=== PATIENT | female | born 1950 | race Caucasian/White ===

== ENCOUNTER 2017-07-13 10:22 | Inpatient (IN) ==
[2017-07-13] MEDS ORDERED: ONDANSETRON 4 MG/2 ML VIAL IV STA (10:53)
[2017-07-13] MEDS ORDERED: PANTOPRAZOLE 40 MG VIAL IV STA (10:53)
[2017-07-13] MEDS ORDERED: SODIUM CHLORIDE 0.9% 1,000 ML IV STA (10:53)
[2017-07-13] MEDS ORDERED: ONDANSETRON 4 MG/2 ML VIAL ONE (11:38)
[2017-07-13] MEDS ORDERED: PANTOPRAZOLE 40 MG VIAL IV ONE (11:38)
[2017-07-13 11:49] LABS: Basophils % 0.5 % (0.0-0.8); Eosinophils # 0.7 10*3/uL (0.0-0.87); Eosinophils % 16.3 % (0.00-10.9); Hematocrit 30.9 VOL% (35.7-47.0); Hemoglobin 10.7 GM/DL (12.0-16.0); Immature Granulocytes % 0.2 %; Immature Granulocytes Absolute 0.01 #; Lymphocytes # 1.9 10*3/uL (1.4-4.0); Lymphocytes % 43.1 % (21.3-54.2); Mean Corpuscular HGB Conc 34.6 GM/DL (32-36); Mean Corpuscular Hemoglobin 33 PG (27-34); Mean Corpuscular Volume 96.6 FL (87-102); Mean Platelet Volume 10.8 FL (9.6-12.0); Monocytes # 0.2 10*3/uL (0.11-0.8); Monocytes % 4.2 % (1.7-12.7); NRBC # 0.22 10*3/uL; Neutrophils # 1.5 10*3/uL (1.4-7.4); Neutrophils % 35.7 % (38.7-73.9); Platelet Count 270 T/CUMM (130-400); Red Cell Distribution Width 17.3 % (9.3-17.3); White Blood Count 4.3 T/CUMM (4-12)
[2017-07-13 12:13] LABS: Band Neutrophils 3 % (0-10); Eosinophils 16 % (0-10); Giant Platelets Few; Hypochromasia 1+; Lymphocytes 46 % (20-55); Nucleated Red Blood Cells 10 (0-5); Ovalocytes Slight; Platelet Estimate Adequate; Segmented Neutrophils 32 % (50-85); Total Cells Counted 100
[2017-07-13 12:16] LABS: Lactic Acid 1.4 MMOL/L (0.4-2.0)
[2017-07-13 12:25] LABS: Alanine Aminotransferase 17 U/L (13-56); Alkaline Phosphatase 68 U/L (45-117); Amylase 28 U/L (25-115); Aspartate Amino Transferase 34 U/L (0-37); Blood Urea Nitrogen 12 MG/DL (7-18); Calcium 8.2 MG/DL (8.5-10.1); Glucose 149 MG/DL (74-106); Osmolality,Calculated 288.8 MOS/KG (273-304); Potassium 3.1 MMOL/L (3.5-5.1); Sodium 144 MMOL/L (136-145); Total Protein 4.9 G/DL (6.4-8.3); Troponin I Only < 0.015 NG/ML (0.00-0.045)
[2017-07-13] MEDS ORDERED: POTASSIUM CHLORIDE 20 MEQ TABLET PO STA (13:41)
[2017-07-13 13:45] LABS: Apearance,Urine Slightly Hazy (Clear); Bacteria,Urine Occasional /HPF (Few); Bilirubin,Urine Negative (Negative); Blood, Urine Negative (Negative); Glucose,Urine (UA) 150 mg/dL (Negative); Ketones,Urine Negative (Negative); Mucus,Urine Occasional /LPF (Occasional); Nitrite,Urine Negative (Negative); Protein,Urine >=500 MG/DL; RBC,Urine 1 /HPF (0-4); Squamous Epithelial Cell,Urine Occasional /HPF (0-10); Urine Color Yellow (Yellow); Urine Specific Gravity 1.026 (1.001-1.035); Urine Urobilinogen < 2.0 EU/DL (0.2-1.0); WBC,Urine 3 /HPF (0-6)
[2017-07-13] MEDS ORDERED: POTASSIUM CHLORIDE 20 MEQ TABLET PO ONE (15:12)
[2017-07-13] MEDS ORDERED: TEMAZEPAM 7.5 MG CAPSULE PO PRN (15:34)
[2017-07-13] MEDS ORDERED: guaiFENesin 200 MG/10 ML UDCUP PO PRN (15:34)
[2017-07-13] MEDS ORDERED: ACETAMINOPHEN 325 MG TABLET PO PRN (15:34)
[2017-07-13] MEDS ORDERED: BENZTROPINE 2 MG/2 ML AMP IV PRN (15:34)
[2017-07-13] MEDS ORDERED: MYLANTA/LIDO VISC 2:1 300 ML BOTTLE SWISH/SWAL PRN (15:34)
[2017-07-13] MEDS ORDERED: ONDANSETRON 4 MG/2 ML VIAL IV PRN (15:34)
[2017-07-13] MEDS ORDERED: LOPERAMIDE 2 MG CAPSULE PO PRN ×2 (15:34)
[2017-07-13] MEDS ORDERED: PROMETHAZINE INJ 25 MG in SODIUM CHLORIDE 0.9% 50 ML IV PRN (15:34)
[2017-07-13] MEDS ORDERED: traMADol 50 MG TABLET PO PRN (15:34)
[2017-07-13] MEDS ORDERED: ALUMINUM/MAGNES/SIMETH MAX STR 30 ML UDCUP PO PRN (15:34)
[2017-07-13] MEDS ORDERED: MAGNESIUM HYDROXIDE SUSP 30 ML UDCUP PO PRN (15:34)
[2017-07-13] MEDS ORDERED: diphenhydrAMINE CAP 25 MG CAPSULE PO PRN (15:34)
[2017-07-13] MEDS ORDERED: ALPRAZolam 0.25 MG TABLET PO PRN (15:34)
[2017-07-13] MEDS ORDERED: MYLANTA/LIDO VISC 2:1 300 ML BOTTLE SWISH/SPIT PRN (15:34)
[2017-07-13] MEDS ORDERED: LACTULOSE 20 GM/30 ML UDCUP PO PRN (15:34)
[2017-07-13 15:53] LABS: Basophils % 0.8 % (0.0-0.8); Eosinophils # 0.8 10*3/uL (0.0-0.87); Eosinophils % 15.6 % (0.00-10.9); Hematocrit 30.7 VOL% (35.7-47.0); Hemoglobin 10.2 GM/DL (12.0-16.0); Immature Granulocytes % 0.2 %; Immature Granulocytes Absolute 0.01 #; Lymphocytes # 2.2 10*3/uL (1.4-4.0); Lymphocytes % 45.3 % (21.3-54.2); Mean Corpuscular HGB Conc 33.2 GM/DL (32-36); Mean Corpuscular Hemoglobin 33 PG (27-34); Mean Corpuscular Volume 98.4 FL (87-102); Mean Platelet Volume 10.4 FL (9.6-12.0); Monocytes # 0.2 10*3/uL (0.11-0.8); Monocytes % 4.4 % (1.7-12.7); NRBC # 0.22 10*3/uL; Neutrophils # 1.6 10*3/uL (1.4-7.4); Neutrophils % 33.7 % (38.7-73.9); Platelet Count 251 T/CUMM (130-400); Red Blood Count 3.12 MC/CUMM (3.8-5.5); Red Cell Distribution Width 17.2 % (9.3-17.3); White Blood Count 4.8 T/CUMM (4-12)
[2017-07-13 16:28] LABS: Uric Acid 4.8 MG/DL (2.6-6.0)
[2017-07-13 16:29] LABS: Albumin 1.9 G/DL (3.4-5.0); Bilirubin,Total 0.5 MG/DL (0.2-1.0); Calcium 7.9 MG/DL (8.5-10.1); Potassium 3.1 MMOL/L (3.5-5.1); Total Protein 4.6 G/DL (6.4-8.3)
[2017-07-13] MEDS: SODIUM CHLORIDE 0.9% 1,000 ML IV SCH (18:03)
[2017-07-13 19:19] LABS: Band Neutrophils 2 % (0-10); Eosinophils 18 % (0-10); Lymphocytes 34 % (20-55); Nucleated Red Blood Cells 2 (0-5); Platelet Estimate Normal; Segmented Neutrophils 43 % (50-85); Total Cells Counted 100
[2017-07-13] MEDS ORDERED: DILTIAZEM CD 240 MG CAPSULE PO ONE (20:36)
[2017-07-13] MEDS: CARVEDILOL 12.5 MG TABLET PO SCH (21:02)
[2017-07-13] MEDS: cloNIDine 0.1 MG TABLET PO PRN (21:03)
[2017-07-13] MEDS: metFORMIN 500 MG TABLET PO SCH (21:03)
[2017-07-13] MEDS: PRAVASTATIN 20 MG TABLET PO SCH (21:03)
[2017-07-14 05:29] LABS: Basophils % 0.4 % (0.0-0.8); Eosinophils # 0.8 10*3/uL (0.0-0.87); Eosinophils % 15.9 % (0.00-10.9); Hematocrit 24.8 VOL% (35.7-47.0); Hemoglobin 8.3 GM/DL (12.0-16.0); Lymphocytes # 2.5 10*3/uL (1.4-4.0); Lymphocytes % 52.1 % (21.3-54.2); Mean Corpuscular HGB Conc 33.5 GM/DL (32-36); Mean Corpuscular Hemoglobin 33 PG (27-34); Mean Corpuscular Volume 98.4 FL (87-102); Mean Platelet Volume 11.1 FL (9.6-12.0); Monocytes # 0.3 10*3/uL (0.11-0.8); Monocytes % 5.3 % (1.7-12.7); NRBC # 0.32 10*3/uL; Neutrophils # 1.2 10*3/uL (1.4-7.4); Neutrophils % 26.3 % (38.7-73.9); Platelet Count 228 T/CUMM (130-400); Red Blood Count 2.52 MC/CUMM (3.8-5.5); Red Cell Distribution Width 17.3 % (9.3-17.3); White Blood Count 4.7 T/CUMM (4-12)
[2017-07-14 07:01] LABS: Band Neutrophils 1 % (0-10); Eosinophils 4 % (0-10); Howell-Jolly Bodies Few; Lymphocytes 48 % (20-55); Nucleated Red Blood Cells 10 (0-5); Segmented Neutrophils 43 % (50-85); Total Cells Counted 100
[2017-07-14 07:02] LABS: Hypochromasia 1+; Platelet Estimate Adequate
[2017-07-14] MEDS: SODIUM CHLORIDE 0.9% 1,000 ML IV SCH (09:01)
[2017-07-14] MEDS: PANTOPRAZOLE 40 MG VIAL IV SCH (09:03)
[2017-07-14] MEDS: MULTIVITAMIN (CENTRUM) TABLET PO SCH (10:22)
[2017-07-14] MEDS: DILTIAZEM CD 240 MG CAPSULE PO SCH (10:22)
[2017-07-14] MEDS: ASPIRIN EC 81 MG TABLET PO SCH (10:22)
[2017-07-14] MEDS: metFORMIN 500 MG TABLET PO SCH ×2 (10:22→20:40)
[2017-07-14] MEDS: CITALOPRAM 40 MG TABLET PO SCH (10:22)
[2017-07-14] MEDS: CARVEDILOL 12.5 MG TABLET PO SCH ×2 (10:22→18:06)
[2017-07-14] MEDS ORDERED: ALTEPLASE 2 MG VIAL IV ONE (11:41)
[2017-07-14] MEDS: FONDAPARINUX 2.5 MG/0.5 ML SYRINGE SUBCUT SCH (18:06)
[2017-07-14] MEDS: PRAVASTATIN 20 MG TABLET PO SCH (20:41)
[2017-07-15 05:05] LABS: Basophils % 0.5 % (0.0-0.8); Eosinophils # 1.1 10*3/uL (0.0-0.87); Eosinophils % 24.1 % (0.00-10.9); Hematocrit 24.9 VOL% (35.7-47.0); Hemoglobin 8.1 GM/DL (12.0-16.0); Immature Granulocytes % 0.2 %; Immature Granulocytes Absolute 0.01 #; Lymphocytes # 2.3 10*3/uL (1.4-4.0); Lymphocytes % 51.1 % (21.3-54.2); Mean Corpuscular HGB Conc 32.5 GM/DL (32-36); Mean Corpuscular Hemoglobin 33 PG (27-34); Mean Platelet Volume 10.9 FL (9.6-12.0); Monocytes # 0.2 10*3/uL (0.11-0.8); NRBC # 0.31 10*3/uL; Neutrophils # 0.8 10*3/uL (1.4-7.4); Neutrophils % 19.1 % (38.7-73.9); Platelet Count 254 T/CUMM (130-400); Red Blood Count 2.49 MC/CUMM (3.8-5.5); White Blood Count 4.4 T/CUMM (4-12)
[2017-07-15 05:39] LABS: Band Neutrophils 1 % (0-10); Eosinophils 25 % (0-10); Lymphocytes 44 % (20-55); Nucleated Red Blood Cells 5 (0-5); Segmented Neutrophils 29 % (50-85); Total Cells Counted 100
[2017-07-15 05:40] LABS: Macrocytosis 3+; Platelet Estimate Normal
[2017-07-15 05:42] LABS: Calcium 6.8 MG/DL (8.5-10.1); Osmolality,Calculated 287.7 MOS/KG (273-304); Potassium 2.9 MMOL/L (3.5-5.1)
[2017-07-15] MEDS: SODIUM CHLORIDE 0.9% 1,000 ML IV SCH ×2 (06:08→22:08)
[2017-07-15] MEDS: metFORMIN 500 MG TABLET PO SCH ×2 (10:10→20:26)
[2017-07-15] MEDS: MULTIVITAMIN (CENTRUM) TABLET PO SCH (10:10)
[2017-07-15] MEDS: CARVEDILOL 12.5 MG TABLET PO SCH ×2 (10:10→16:08)
[2017-07-15] MEDS: CITALOPRAM 40 MG TABLET PO SCH (10:10)
[2017-07-15] MEDS: ASPIRIN EC 81 MG TABLET PO SCH (10:10)
[2017-07-15] MEDS: PANTOPRAZOLE 40 MG VIAL IV SCH (10:10)
[2017-07-15] MEDS: DILTIAZEM CD 240 MG CAPSULE PO SCH (10:10)
[2017-07-15] MEDS ORDERED: MAGNESIUM SULF RIDER 2 GM in PREMIX 1 EACH IV ONE (10:25)
[2017-07-15] MEDS ORDERED: POTASSIUM CHLORIDE RIDER 20 MEQ in PREMIX 1 EACH IV ONE (10:25)
[2017-07-15] MEDS ORDERED: SODIUM CHLORIDE 0.9% 1,000 ML IV PRN (10:26)
[2017-07-15] MEDS: CHOLESTYRAMINE 4 GM PACK PO SCH ×2 (12:11→20:26)
[2017-07-15] MEDS: FONDAPARINUX 2.5 MG/0.5 ML SYRINGE SUBCUT SCH (12:19)
[2017-07-15] MEDS: cloNIDine 0.1 MG TABLET PO PRN (18:54)
[2017-07-15] MEDS: PRAVASTATIN 20 MG TABLET PO SCH (20:26)
[2017-07-15] MEDS ORDERED: cloNIDine 0.1 MG TABLET PO ONE (20:30)
[2017-07-16 05:15] LABS: Basophils % 0.5 % (0.0-0.8); Eosinophils # 1.1 10*3/uL (0.0-0.87); Eosinophils % 24.8 % (0.00-10.9); Hematocrit 29.4 VOL% (35.7-47.0); Immature Granulocytes % 0.5 %; Immature Granulocytes Absolute 0.02 #; Lymphocytes # 2.6 10*3/uL (1.4-4.0); Lymphocytes % 59.9 % (21.3-54.2); Mean Corpuscular Hemoglobin 33 PG (27-34); Mean Corpuscular Volume 96.7 FL (87-102); Mean Platelet Volume 10.4 FL (9.6-12.0); Monocytes # 0.2 10*3/uL (0.11-0.8); Monocytes % 5.3 % (1.7-12.7); NRBC # 0.27 10*3/uL; Neutrophils # 0.4 10*3/uL (1.4-7.4); Platelet Count 263 T/CUMM (130-400); Red Blood Count 3.04 MC/CUMM (3.8-5.5); Red Cell Distribution Width 17.3 % (9.3-17.3); White Blood Count 4.4 T/CUMM (4-12)
[2017-07-16 05:38] LABS: Lymphocytes 61 % (20-55); Segmented Neutrophils 10 % (50-85); Total Cells Counted 100
[2017-07-16 05:39] LABS: Atypical Lymphocytes Few; Eosinophils 25 % (0-10); Hypochromasia 1+; Nucleated Red Blood Cells 9 (0-5); Ovalocytes Slight; Platelet Estimate Adequate
[2017-07-16 05:40] LABS: Howell-Jolly Bodies Few; Macrocytosis Slight
[2017-07-16 05:43] LABS: Osmolality,Calculated 286.7 MOS/KG (273-304); Potassium 3.2 MMOL/L (3.5-5.1)
[2017-07-16] MEDS: MULTIVITAMIN (CENTRUM) TABLET PO SCH (08:14)
[2017-07-16] MEDS: CITALOPRAM 40 MG TABLET PO SCH (08:14)
[2017-07-16] MEDS: DILTIAZEM CD 240 MG CAPSULE PO SCH (08:14)
[2017-07-16] MEDS: ASPIRIN EC 81 MG TABLET PO SCH (08:15)
[2017-07-16] MEDS: CHOLESTYRAMINE 4 GM PACK PO SCH ×2 (08:15→20:46)
[2017-07-16] MEDS: PANTOPRAZOLE 40 MG VIAL IV SCH (08:15)
[2017-07-16] MEDS: metFORMIN 500 MG TABLET PO SCH ×2 (08:15→20:45)
[2017-07-16] MEDS: FILGRASTIM-SNDZ 300 MCG/0.5 ML SYRINGE SUBCUT SCH (08:15)
[2017-07-16] MEDS: POTASSIUM CHLORIDE 20 MEQ TABLET PO SCH ×2 (08:15→20:45)
[2017-07-16] MEDS: CARVEDILOL 12.5 MG TABLET PO SCH ×2 (08:15→17:08)
[2017-07-16] MEDS: FONDAPARINUX 2.5 MG/0.5 ML SYRINGE SUBCUT SCH (13:13)
[2017-07-16] MEDS: PRAVASTATIN 20 MG TABLET PO SCH (20:45)
[2017-07-17 05:08] LABS: Basophils % 0.7 % (0.0-0.8); Eosinophils # 1.5 10*3/uL (0.0-0.87); Eosinophils % 25.7 % (0.00-10.9); Hematocrit 33.3 VOL% (35.7-47.0); Hemoglobin 10.9 GM/DL (12.0-16.0); Immature Granulocytes % 0.5 %; Immature Granulocytes Absolute 0.03 #; Lymphocytes # 2.9 10*3/uL (1.4-4.0); Lymphocytes % 51.1 % (21.3-54.2); Mean Corpuscular HGB Conc 32.7 GM/DL (32-36); Mean Corpuscular Hemoglobin 33 PG (27-34); Mean Corpuscular Volume 99.4 FL (87-102); Mean Platelet Volume 10.9 FL (9.6-12.0); Monocytes # 0.6 10*3/uL (0.11-0.8); Monocytes % 9.8 % (1.7-12.7); NRBC # 0.33 10*3/uL; Neutrophils # 0.7 10*3/uL (1.4-7.4); Neutrophils % 12.2 % (38.7-73.9); Platelet Count 313 T/CUMM (130-400); Red Blood Count 3.35 MC/CUMM (3.8-5.5); Red Cell Distribution Width 17.6 % (9.3-17.3); White Blood Count 5.7 T/CUMM (4-12)
[2017-07-17 05:37] LABS: Band Neutrophils 5 % (0-10); Eosinophils 34 % (0-10); Giant Platelets Few; Lymphocytes 43 % (20-55); Nucleated Red Blood Cells 5 (0-5); Platelet Estimate Adequate; Segmented Neutrophils 13 % (50-85); Total Cells Counted 100
[2017-07-17 05:38] LABS: Atypical Lymphocytes Few; Hypochromasia Slight; Macrocytosis Slight; Ovalocytes Slight
[2017-07-17 05:58] LABS: Alanine Aminotransferase 10 U/L (13-56); Albumin 1.6 G/DL (3.4-5.0); Alkaline Phosphatase 57 U/L (45-117); Aspartate Amino Transferase 21 U/L (0-37); Bilirubin,Total < 0.39 MG/DL (0.2-1.0); Blood Urea Nitrogen 9 MG/DL (7-18); Calcium 6.6 MG/DL (8.5-10.1); Glucose 97 MG/DL (74-106); Osmolality,Calculated 286.7 MOS/KG (273-304); Potassium 3.5 MMOL/L (3.5-5.1); Sodium 145 MMOL/L (136-145); Total Protein 3.9 G/DL (6.4-8.3)
[2017-07-17 07:51] VITALS: BP 142/82
[2017-07-17] MEDS ORDERED: HEPARIN LOCK FLUSH 500 UNIT/5 ML SYRINGE IV ONE (08:22)
[2017-07-17] MEDS: POTASSIUM CHLORIDE 20 MEQ TABLET PO SCH (08:26)
[2017-07-17] MEDS: CITALOPRAM 40 MG TABLET PO SCH (08:26)
[2017-07-17] MEDS: DILTIAZEM CD 240 MG CAPSULE PO SCH (08:27)
[2017-07-17] MEDS: CARVEDILOL 12.5 MG TABLET PO SCH (08:27)
[2017-07-17] MEDS: ASPIRIN EC 81 MG TABLET PO SCH (08:28)
[2017-07-17] MEDS: MULTIVITAMIN (CENTRUM) TABLET PO SCH (08:28)
[2017-07-17] MEDS: metFORMIN 500 MG TABLET PO SCH (08:29)
[2017-07-17] MEDS: FILGRASTIM-SNDZ 300 MCG/0.5 ML SYRINGE SUBCUT SCH (08:30)
[2017-07-17] MEDS: PANTOPRAZOLE 40 MG VIAL IV SCH (08:31)
[2017-07-17] MEDS: CHOLESTYRAMINE 4 GM PACK PO SCH (08:35)
== END 2017-07-17 11:40 | disposition home or self-care (01) | DRG 392 ==
LOC: N.ED 10:22 → N.EDINP 14:18 → N.4E 15:20
PROVIDERS: ADMIT Specialist; ATTEND Specialist

== ENCOUNTER 2019-05-15 23:30 | Inpatient (IN) ==
[2019-05-16] MEDS ORDERED: LORazepam 1 MG TABLET PO STA (00:09)
[2019-05-16] MEDS ORDERED: ALBUTEROL/IPRATROPIUM 3 ML NEB RESP TX STA (01:28)
[2019-05-16] MEDS ORDERED: MEROPENEM 1,000 MG in SODIUM CHLORIDE 0.9% 100 ML IV STA ×2 (01:28→01:30)
[2019-05-16 01:33] LABS: Basophils # 0.1 10*3/uL (0.0-0.2); Basophils % 1.1 % (0.0-0.8); Eosinophils # 0.2 10*3/uL (0.0-0.87); Eosinophils % 2.2 % (0.00-10.9); Hematocrit 26.3 VOL% (35.7-47.0); Hemoglobin 8.3 GM/DL (12.0-16.0); Immature Granulocytes % 0.4 %; Immature Granulocytes Absolute 0.03 #; Lymphocytes # 1.3 10*3/uL (1.4-4.0); Lymphocytes % 14.8 % (21.3-54.2); Mean Corpuscular HGB Conc 31.6 GM/DL (32-36); Mean Corpuscular Volume 96.3 FL (87-102); Mean Platelet Volume 10.4 FL (9.6-12.0); Monocytes % 8.6 % (1.7-12.7); Neutrophils % 72.9 % (38.7-73.9); Platelet Count 340 T/CUMM (130-400); Red Blood Count 2.73 MC/CUMM (3.8-5.5); White Blood Count 8.5 T/CUMM (4-12)
[2019-05-16 01:50] LABS: Albumin 2.7 G/DL (3.4-5.0); Bilirubin,Total 0.4 MG/DL (0.2-1.0); Calcium 8.6 MG/DL (8.5-10.1); Osmolality,Calculated 285.7 MOS/KG (273-304); Total Protein 5.8 G/DL (6.4-8.3)
[2019-05-16] MEDS ORDERED: ONDANSETRON 4 MG/2 ML VIAL IV PRN (03:00)
[2019-05-16] MEDS ORDERED: ACETAMINOPHEN 325 MG TABLET PO PRN (03:00)
[2019-05-16] MEDS ORDERED: DEXTROSE 50% 25 GM/50 ML SYRINGE IV PRN (03:07)
[2019-05-16] MEDS ORDERED: GLUCAGON 1 MG VIAL IM PRN (03:07)
[2019-05-16] MEDS ORDERED: LEVOTHYROXINE 150 MCG TABLET PO SCH (06:00)
[2019-05-16 07:26] LABS: Albumin 2.4 G/DL (3.4-5.0); Bilirubin,Total 0.8 MG/DL (0.2-1.0); Calcium 8.3 MG/DL (8.5-10.1); Osmolality,Calculated 284.7 MOS/KG (273-304); Total Protein 5.7 G/DL (6.4-8.3)
[2019-05-16 07:32] LABS: Basophils # 0.1 10*3/uL (0.0-0.2); Basophils % 1.2 % (0.0-0.8); Eosinophils # 0.2 10*3/uL (0.0-0.87); Eosinophils % 2.3 % (0.00-10.9); Hematocrit 21.3 VOL% (35.7-47.0); Immature Granulocytes % 0.4 %; Immature Granulocytes Absolute 0.03 #; Lymphocytes # 2.3 10*3/uL (1.4-4.0); Lymphocytes % 27.8 % (21.3-54.2); Mean Corpuscular HGB Conc 31.5 GM/DL (32-36); Mean Corpuscular Volume 96.8 FL (87-102); Mean Platelet Volume 9.6 FL (9.6-12.0); Monocytes % 9.7 % (1.7-12.7); Neutrophils % 58.6 % (38.7-73.9); Platelet Count 371 T/CUMM (130-400); Red Cell Distribution Width 15.1 % (9.3-17.3); White Blood Count 8.2 T/CUMM (4-12)
[2019-05-16 07:34] LABS: Hemoglobin 6.7 GM/DL (12.0-16.0)
[2019-05-16 07:40] LABS: PT Patient Result 10.7 SECS (9.6-12.2)
[2019-05-16] MEDS: ALBUTEROL/IPRATROPIUM 3 ML NEB RESP TX SCH ×2 (07:40→13:05)
[2019-05-16] MEDS: INSULIN REGULAR 100 UNIT/ML SUBCUT SCH ×3 (08:33→15:57)
[2019-05-16] MEDS ORDERED: SODIUM CHLORIDE 0.9% 1,000 ML IV PRN (08:36)
[2019-05-16] MEDS ORDERED: MULTIVITAMIN (CENTRUM) TABLET PO SCH (09:00)
[2019-05-16] MEDS ORDERED: DILTIAZEM CD 240 MG CAPSULE PO SCH (09:00)
[2019-05-16] MEDS ORDERED: FUROSEMIDE 20 MG TABLET PO SCH (09:00)
[2019-05-16] MEDS ORDERED: VITAMIN E 400 UNIT CAPSULE PO SCH (09:00)
[2019-05-16] MEDS ORDERED: CITALOPRAM 40 MG TABLET PO SCH (09:00)
[2019-05-16] MEDS ORDERED: MAGNESIUM OXIDE 400 MG TABLET PO SCH (09:00)
[2019-05-16] MEDS ORDERED: lisinopriL 20 MG TABLET PO SCH (09:00)
[2019-05-16] MEDS: carvediloL 12.5 MG TABLET PO SCH ×2 (11:54→17:04)
[2019-05-16] MEDS ORDERED: MEROPENEM 2,000 MG in SODIUM CHLORIDE 0.9% 100 ML IV SCH (15:00)
[2019-05-16 18:10] VITALS: BP 140/96
[2019-05-16] MEDS ORDERED: MELATONIN 3 MG TABLET PO SCH (21:00)
[2019-05-16] MEDS ORDERED: SIMVASTATIN 10 MG TABLET PO SCH (21:00)
== END 2019-05-16 19:40 | disposition hospice, home (50) | DRG 180 ==
LOC: N.ED 23:30 → SUATTDRO 05-16 03:00 → N.EDINP 05-16 03:00 → N.4E 05-16 03:27
PROVIDERS: ADMIT Emergency Medicine; ATTEND Hospitalist